=== PATIENT | female | born 1995 | race Caucasian/White ===

== ENCOUNTER 2020-12-29 21:31 | Emergency (ER) | payer SELFPAY ==
[~2020-12-29] VITALS: Ht 160 cm; Wt 48.8 kg
[2020-12-29 21:46] VITALS: BP 113/72
== END 2020-12-30 00:41 | disposition left against medical advice (07) ==
LOC: ER 22:06
DX: Z53.21 Procedure and treatment not carried out due to patient leaving prior to being seen by health care provider (principal)